=== PATIENT | female | born 1975 | race Caucasian/White ===

== ENCOUNTER 2016-10-07 08:06 | Emergency (ER) | payer OTHER ==
[2016-10-07 09:09] LABS: ABSOLUTE NEUTROPHIL COUNT 2.5 K/mm3 (1.8-7.7); BASO % 0.7 % (0.2-1.0); EOS # 0.1 (0.0-0.5); HEMATOCRIT 31.6 % (37.0-47.0); HEMOGLOBIN 10.1 gm/l (12.0-16.0); LYMPH # 1.2 (1.0-4.8); LYMPH % 28.6 % (15-45); MEAN CELL VOLUME 89.3 fl (81.0-99.0); MEAN CORPUSCULAR HEMOGLOBIN 28.5 pg (27.0-31.0); MEAN PLATELET VOLUME 9.8 fl (7.4-10.4); MONO # 0.3 (0.0-0.8); MONO % 7.5 % (4-12); NEUT % 61.2 % (43-75); PLATELET COUNT 319 K/mm3 (130-400); RED CELL DISTRIBUTION WIDTH 16.7 % (11.5-14.5)
[2016-10-07 09:10] LABS: URINE APPEARANCE CLEAR; URINE BILIRUBIN NEGATIVE (NEGATIVE); URINE BLOOD 1+ (NEGATIVE); URINE COLOR YELLOW; URINE GLUCOSE (UA) NEGATIVE (NEGATIVE); URINE LEUKOCYTE ESTERASE NEGATIVE (NEGATIVE); URINE NITRITE NEGATIVE (NEGATIVE); URINE PROTEIN NEGATIVE (NEGATIVE); URINE UROBILINOGEN NORMAL (0-1 mg/dl)
[2016-10-07 09:21] LABS: AMPHETAMINES/METHAMPHETAMINES POSITIVE (NEGATIVE); COCAINE NEGATIVE (NEGATIVE); MARIJUANA POSITIVE (NEGATIVE); METHADONE NEGATIVE (NEGATIVE); OPIATES NEGATIVE (NEGATIVE); TRICYCLIC ANTIDEPRESSANTS NEGATIVE (NEGATIVE)
[2016-10-07 09:24] LABS: URINE AMORPHOUS SEDIMENT FEW; URINE BACTERIA FEW; URINE MUCUS 1+
[2016-10-07 09:25] LABS: ALB/GLOB RATIO 1.4 (>1.0); CALCIUM 9.4 mg/dL (8.6-10.3)
[2016-10-07 09:31] LABS: TROPONIN I < 0.01 ng/ml (0.0-0.06)
[2016-10-07 09:54] LABS: THYROID STIMULATING HORMONE 1.23 uIU/ml (0.34-5.60)
== END 2016-10-07 10:25 | disposition home or self-care (01) ==
LOC: ED 08:06
DX: R53.1 Weakness (principal); R42 Dizziness and giddiness; F12.90 Cannabis use, unspecified, uncomplicated; F15.90 Other stimulant use, unspecified, uncomplicated; F17.210 Nicotine dependence, cigarettes, uncomplicated